=== PATIENT | female | born 1955 | race Caucasian/White ===

== ENCOUNTER 2017-08-29 14:54 | Emergency (ER) | payer OTHER, BC ==
[~2017-08-29] VITALS: Ht 160 cm; Wt 80.2 kg
[2017-08-29] MEDS ORDERED: NAPROSYN500 MG PO (15:56)
[2017-08-29 18:03] VITALS: BP 178/93
== END 2017-08-29 18:20 | disposition home or self-care (01) ==
LOC: EME 14:54
DX: R07.89 Other chest pain (principal); V49.40XA Driver injured in collision with unspecified motor vehicles in traffic accident, initial encounter; Y92.410 Unspecified street and highway as the place of occurrence of the external cause; R53.82 Chronic fatigue, unspecified
CPT/HCPCS: 71046; 93005